=== PATIENT | female | born 1985 | race Caucasian/White ===

== ENCOUNTER 2024-10-12 14:38 | Emergency (ER) | payer MEDICAID ==
[~2024-10-12] VITALS: Ht 149.9 cm; Wt 49.4 kg
[2024-10-12] MEDS ORDERED: ONDANSETRON HCL/PF 4 MG/2 ML VIAL ONE (15:15)
[2024-10-12] MEDS ORDERED: MORPHINE SULFATE INJ 4 MG/ML DISP.SYRIN ONE (15:15)
[2024-10-12] MEDS: MORPHINE SULFATE INJ 2 MG/ML DISP.SYRIN IV ONE (15:15)
[2024-10-12] MEDS: ONDANSETRON HCL/PF 4 MG/2 ML VIAL IVP ONE (15:16)
[2024-10-12 15:31] LABS: BASOPHILS % (AUTO) 0.2 % (0.0-2.0); EOSINOPHILS # (AUTO) 0.3 K/uL (0.0-0.7); EOSINOPHILS % (AUTO) 3.8 % (0.0-6.0); HEMATOCRIT 40 % (33-45); HEMOGLOBIN 13.1 g/dL (11.5-14.8); LYMPHOCYTES # (AUTO) 2.8 K/uL (0.8-4.8); LYMPHOCYTES % (AUTO) 37.7 % (20.0-44.0); MEAN CORPUSCULAR HEMOGLOBIN 29 PG (26.0-33.0); MEAN CORPUSCULAR HGB CONC 33 g/dl (31.0-36.0); MEAN CORPUSCULAR VOLUME 86 fL (82-100); MONOCYTES # (AUTO) 0.6 K/uL (0.1-1.30); MONOCYTES % (AUTO) 8.4 % (2.0-12.0); NEUTROPHILS # (AUTO) 3.8 K/uL (1.8-8.9); NEUTROPHILS % (AUTO) 49.9 % (43.0-81.0); PLATELET COUNT (AUTO) 304 K/uL (150-450); RED BLOOD CELL COUNT(AUTO) 4.62 MIL/uL (4.0-5.2); RED CELL DISTRIBUTION WIDTH 13.2 % (11.5-15.0); WHITE BLOOD COUNT (AUTO) 7.5 K/uL (4.3-11.0)
[2024-10-12 15:43] LABS: ALBUMIN 3.7 g/dL (3.4-5.0); BILIRUBIN,DIRECT 0.1 mg/dL (0.0-0.2); BILIRUBIN,TOTAL 0.6 mg/dL (0.2-1.0); CALCIUM, SERUM 8.6 mg/dL (8.5-10.1); CREATININE 0.7 mg/dL (0.6-1.3)
[2024-10-12] MEDS ORDERED: FAMOTIDINE (20 MG) 20 MG TABLET ONE (16:04)
[2024-10-12] MEDS ORDERED: MAG HYDROX/AL HYDROX/SIMETH 30 ML UDC ONE (16:04)
[2024-10-12] MEDS: MAG HYDROX/AL HYDROX/SIMETH 30 ML UDC PO ONE (16:08)
[2024-10-12] MEDS: FAMOTIDINE (20 MG) 20 MG TABLET PO ONE (16:08)
[2024-10-12] MEDS ORDERED: PANT20TA2 PO (18:20)
[2024-10-12] MEDS ORDERED: ACET-73 PO (18:20)
[2024-10-12] MEDS ORDERED: ONDA4TAB5 PO (18:20)
[2024-10-12] MEDS: ACETAMINOPHEN ES 500 MG TABLET PO ONE (19:28)
[2024-10-12] MEDS ORDERED: ACETAMINOPHEN ES 500 MG TABLET ONE (19:28)
[2024-10-12 19:55] LABS: APPEARANCE,URINE CLEAR (CLEAR); BILIRUBIN,URINE NEGATIVE (NEGATIVE); BLOOD, URINE 2+ Ery/uL (NEGATIVE); COLOR,URINE YELLOW (YELLOW); KETONES,URINE NEGATIVE (NEGATIVE); LEUKOCYTE ESTERASE ,URINE NEGATIVE (NEGATIVE); NITRITE, URINE NEGATIVE (NEGATIVE); PROTEIN,URINE NEGATIVE (NEGATIVE); UGLUCOSE NEGATIVE (NEGATIVE); UROBILINOGEN,URINE 0.2 EU/dL (0.2)
[2024-10-12 19:57] LABS: ADD URINE CULTURE NO; BACTERIA,URINE Few /HPF (None Seen); SQUAMOUS EPITHELIAL CELL,UR Few /HPF (None Seen)
[2024-10-12] MEDS ORDERED: LIDOCAINE VISCOUS 2% UD 15 ML UDC ONE (20:13)
[2024-10-12] MEDS: LIDOCAINE VISCOUS 2% UD 15 ML UDC MM ONE (20:14)
[2024-10-12 20:26] VITALS: BP 112/70; TEMP 97.6; O2SAT 99
== END 2024-10-12 20:27 | disposition home or self-care (01) ==
LOC: ER 14:41
DX: K21.9 Gastro-esophageal reflux disease without esophagitis (principal); F17.200 Nicotine dependence, unspecified, uncomplicated; Z79.899 Other long term (current) drug therapy; Z60.2 Problems related to living alone
CPT/HCPCS: 99285; 96374; 76700; 96375; 85025; 80048; 83690; 80076; 81001; 36415; J2270; J2405; 87086-TC